=== PATIENT | female | born 1995 | race African-American/Black ===

== ENCOUNTER 2018-03-22 19:44 | Emergency (ER) | payer MEDICAID ==
[~2018-03-22] VITALS: Ht 167.6 cm; Wt 62.0 kg
[~2018-03-22 19:44] MED LIST: FAMO-208
[2018-03-22 19:58] VITALS: BP_SYST 81
== END 2018-03-22 22:36 | disposition left against medical advice (07) ==
LOC: ER 19:44
DX: Z53.21 Procedure and treatment not carried out due to patient leaving prior to being seen by health care provider (principal)

== ENCOUNTER 2019-03-13 02:59 | Emergency (ER) | payer MEDICAID ==
[~2019-03-13] VITALS: Ht 167.6 cm; Wt 61.0 kg
[2019-03-13] MEDS ORDERED: KETOROLAC 30MG/ML VIAL IV STA (06:28)
[2019-03-13] MEDS ORDERED: SODIUM CHLORIDE 0.9% 1,000 ML IV ONE (06:28)
[2019-03-13] MEDS ORDERED: ONDANSETRON HCL 4MG/2ML INJ IV STA (06:28)
[2019-03-13] MEDS ORDERED: KETOROLAC 15MG/ML VIAL IV ONE ×2 (06:37→06:52)
[2019-03-13 07:09] LABS: CHLORIDE 106 mEq/L (98-107)
[2019-03-13 07:12] LABS: BASOPHILS % 0.7 % (0.0-2.0); EOSINOPHILS % 1.8 % (0.0-5.0); HEMATOCRIT. 38.8 % (36.0-48.0); HEMOGLOBIN. 13.3 g/dL (12.0-16.0); LYMPHOCYTES % 58.8 % (20.0-50.0); MEAN CORPUSCULAR HEMOGLOBIN 33.2 pg (28.0-32.0); MEAN CORPUSCULAR VOLUME 96.6 fL (81.0-99.0); MEAN PLATELET VOLUME 8.5 fl (7.4-10.4); MONOCYTES % 9.9 % (2.0-8.0); NEUTROPHILS % 28.8 % (40.0-76.0); PLATELET 184 x1000/uL (130-400); RED BLOOD CELL COUNT 4.02 mill/uL (4.2-5.4); RED CELL DISTRIBUTION WIDTH 13.3 % (11.6-14.6)
[2019-03-13 07:18] LABS: HCG SCREEN NEGATIVE
[2019-03-13 08:30] VITALS: BP 119/85
== END 2019-03-13 08:30 | disposition home or self-care (01) ==
LOC: ER 02:59
DX: R05 Cough (principal); R11.10 Vomiting, unspecified; R19.7 Diarrhea, unspecified; F12.10 Cannabis abuse, uncomplicated
CPT/HCPCS: 36415; 71045; 80053; 81025; 84703; 85025; 96374; 96375; 99284; J1885; J2405; J7030